=== PATIENT | female | born 1955 | race Caucasian/White ===

== ENCOUNTER 2018-12-23 16:35 | Emergency (ER) | payer MEDICARE ==
[~2018-12-23] VITALS: Ht 152.4 cm; Wt 145.4 kg
[2018-12-23] MEDS ORDERED: ketorolac trometh inj. 60 MG/2 ML VIAL IM ONE (18:50)
--- NOTE | 2018-12-23 19:14 | NUR ---
PT MOVED FROM FAST [facility]ACK TO MAIN ER D/T CT RESULTING SHOWING SDH. PT TO BE TRANSFERRED TO [facility]. CURRENT VSS.
--- NOTE | 2018-12-23 19:30 | NUR ---
PT TEARFUL ABOUT CURRENT SITUATION. ACCEPTED AT [facility] ER TO ER. Mati LEWIS AT BEDSIDE TO ANSWER ANY FURTHER QUESTIONS. PT WITH FAMMILIY AT BEDSIDE. PIV X2 BILATERAL AC'S. LABS DRAWN , BUT [facility] REPROTS TO SEND THE BLOOD W/PT AND THEY WILL RUN IT IN HOUSE. PT WITH FAINT REDNESS TOTHE TOP LEFT HEAD NO NOTICABLE LUMP OUR BRUISE. PT WITH STABLE VS. PT REPROTS THE PAIN IS 2 OUT OF 10 TO HER HEAD. AWAITING EMS FOR TRANSFER.
[2018-12-23 19:32] VITALS: BP 149/85
--- NOTE | 2018-12-23 19:56 | NUR ---
REPORT TO LEEANNA JOAQUIN, [facility] ER, PT CURRENTLY WITH STABLE VS AND 3 OUT OF 10 LEFT SIDED SAM. EMS ARRIVING FOR TRANSPORT AND PT SAT UP TO GET INTO [facility] AND WAS NAUSEAUS AND EMESIS 300 CC'S.
== END 2018-12-23 20:05 | disposition short-term general hospital (02) ==
LOC: ER 16:36
DX: S06.300A Unspecified focal traumatic brain injury without loss of consciousness, initial encounter (principal); I10 Essential (primary) hypertension; E11.9 Type 2 diabetes mellitus without complications; Z87.891 Personal history of nicotine dependence; V09.9XXA Pedestrian injured in unspecified transport accident, initial encounter; Y93.89 Activity, other specified; Y92.89 Other specified places as the place of occurrence of the external cause; Y99.8 Other external cause status
CPT/HCPCS: 70450; 72125; 82948; 99285; J1885